=== PATIENT | male | born 1985 | race Two or more races ===

== ENCOUNTER 2017-10-09 14:55 | Emergency (ER) | payer BC ==
--- NOTE | 2017-10-09 15:37 | EDM.PDOC ---
ED HPI GENERAL MEDICAL PROBLEM - General Chief Complaint: ENT Problem Stated Complaint: LEFT EAR PAIN Time Seen by Provider: 10/09/17 15:05 Source of Information: Reports: Patient History Limitations: Reports: No Limitations - History of Present Illness INITIAL COMMENTS - FREE TEXT/NARRATIVE: History of present illness: [31-year-old male comes in with complaints of frostbite to left ear. Patient indicates that he had mistakenly gone outside thinking he would be there briefly and in fact was out there for a protracted period of time and sustained wind and cold to the left ear with subsequent blistering of skin. Comes in seeking antibiotics.] Review of systems: As per history of present illness and below otherwise all systems reviewed and negative. Past medical history: As per history of present illness and as reviewed below otherwise noncontributory. Surgical history: As per history of present illness and as reviewed below otherwise noncontributory. Social history: No reported history of drug or alcohol abuse. Family history: As per history of present illness and as reviewed below otherwise noncontributory. Physical exam: HEENT: Atraumatic, normocephalic, pupils reactive, negative for conjunctival pallor or scleral icterus, mucous membranes moist, throat clear, neck supple, nontender, trachea midline. Lungs: Clear to auscultation, breath sounds equal bilaterally, chest nontender. Heart: S1S2, regular, negative for clicks, rubs, or JVD. Abdomen: Soft, nondistended, nontender. Negative for masses or hepatosplenomegaly. Negative for costovertebral tenderness. Pelvis: Stable nontender. Genitourinary: Deferred. Rectal: Deferred. Extremities: Atraumatic, negative for cords or calf pain. Neurovascular unremarkable. Neuro: Awake, alert, oriented. Cranial nerves II through XII unremarkable. Cerebellum unremarkable. Motor and sensory unremarkable throughout. Exam nonfocal. Skin: Posterior aspect of left ear noted to have a blister at the top of the ear towards the back side site opening with scabbing already transferring Diagnostics: [] Therapeutics: [] Impression: [#1 frostbite to ear] Plan: [Antibiotics, Silvadene] Definitive disposition and diagnosis as appropriate pending reevaluation and review of above. - Related Data Allergies Allergy/AdvReac Type Severity Reaction Status Date / Time No Known Allergies Allergy Verified 10/09/17 15:18 Home Meds: Home Meds Cephalexin [Keflex] 500 mg PO QID #40 capsule 10/09/17 [Rx] Silver Sulfadiazine [Silvadene 1% Cream 50 GM] 50 gm TOP BID #1 tube 10/09/17 [ Rx] ED ROS GENERAL - Review of Systems Review Of Systems: See Below (See history of present illness) ED EXAM, GENERAL - Physical Exam Exam: See Below (History of present illness) Course - Vital Signs Last Recorded V/S: Last Vital Signs Temp 36.7 C 10/09/17 15:18 Pulse 94 10/09/17 15:18 Resp 18 10/09/17 15:18 BP 148/85 H 10/09/17 15:18 Pulse Ox 95 10/09/17 15:18 Departure - Departure Time of Disposition: 15:35 Disposition: Home, Self-Care 01 Condition: Good Clinical Impression: Frostbite of ear - Discharge Information Prescriptions: Cephalexin [Keflex] 500 mg PO QID #40 capsule Silver Sulfadiazine [Silvadene 1% Cream 50 GM] 50 gm TOP BID #1 tube Referrals: PCP,None [Primary Care Provider] - Additional Instructions: The following information is given to patients seen in the emergency department who are being discharged to home. This information is to outline your options for follow-up care. We provide all patients seen in our emergency department with a follow-up referral. The need for follow-up, as well as the timing and circumstances, are variable depending upon the specifics of your emergency department visit. If you don't have a primary care physician on staff, we will provide you with a referral. We always advise you to contact your personal physician following an emergency department visit to inform them of the circumstance of the visit and for follow-up with them and/or the need for any referrals to a consulting specialist. The emergency department will also refer you to a specialist when appropriate. This referral assures that you have the opportunity for follow-up care with a specialist. All of these measure are taken in an effort to provide you with optimal care, which includes your follow-up. Under all circumstances we always encourage you to contact your private physician who remains a resource for coordinating your care. When calling for follow-up care, please make the office aware that this follow-up is from your recent emergency room visit. If for any reason you are refused follow-up, please contact the [facility] Emergency Department at and asked to speak to the emergency department charge nurse. Chronic medication as directed Apply thin coating of cream to affected area on your ear twice a day gently cleaning it prior to applying new coating Follow-up with Primary care in 3-5 days Return to ED as needed as discussed
== END 2017-10-09 15:57 | disposition home or self-care (01) ==
LOC: MW.ED 14:55
DX: T33.012A Superficial frostbite of left ear, initial encounter (principal); X31.XXXA Exposure to excessive natural cold, initial encounter
CPT/HCPCS: 99283

== ENCOUNTER 2018-05-01 16:12 | Emergency (ER) | payer BC, OTHER ==
--- NOTE | 2018-05-01 16:36 | EDM.PDOC ---
ED HPI GENERAL MEDICAL PROBLEM - General Chief Complaint: Lower Extremity Injury/Pain Stated Complaint: left knee pain Time Seen by Provider: 05/01/18 16:15 Source of Information: Reports: Patient History Limitations: Reports: No Limitations - History of Present Illness INITIAL COMMENTS - FREE TEXT/NARRATIVE: HISTORY AND PHYSICAL: History of present illness: Patient is a 32-year-old male who presents to the emergency room with complaints of left anterior knee pain. He states that he started having discomfort approximately 2 days ago. He denies any injury, trauma or falls. No previous surgeries or knee pain/injuries. Skin is intact with out any erythema, rashes or open skin. He does have some soft tissue swelling noted at the patella , which she states is "normal". Review of systems: As per history of present illness and below otherwise all systems reviewed and negative. Past medical history: As per history of present illness and as reviewed below otherwise noncontributory. Surgical history: As per history of present illness and as reviewed below otherwise noncontributory. Social history: No reported history of drug or alcohol abuse. Family history: As per history of present illness and as reviewed below otherwise noncontributory. Physical exam: General: Well-developed and well-nourished 32-year-old male. Alert and oriented. Nontoxic appearing and in no acute distress. HEENT: Atraumatic, normocephalic, pupils equal and reactive bilaterally, negative for conjunctival pallor or scleral icterus, mucous membranes moist, throat clear, neck supple, nontender, trachea midline. No drooling or trismus noted. No meningeal signs Lungs: Clear to auscultation, breath sounds equal bilaterally, chest nontender. Heart: S1S2, regular rate and rhythm without overt murmur Abdomen: Soft, nondistended, nontender. Negative for masses or hepatosplenomegaly. Negative for costovertebral tenderness. Pelvis: Stable nontender. Genitourinary: Deferred. Rectal: Deferred. Skin: Intact, warm, dry. No lesions or rashes noted. Extremities: Atraumatic, moves all extremities per self without difficulty or deficits. Strong pedal pulses bilaterally. No knee instability. No pain with palpation to the popliteal area. Mild discomfort when palpating over the patella with some mild soft tissue swelling. He is negative for cords or calf pain. Neurovascular unremarkable. Neuro: Awake, alert, oriented. Cranial nerves II through XII unremarkable. Cerebellum unremarkable. Motor and sensory unremarkable throughout. Exam nonfocal. Notes: X-ray shows a fragmented appearance of the tibial tubercle which can represent old or new avulsion fracture. This is not displaced. Patient does have some tenderness but states that the soft tissue swelling is "normal" for him. A knee sleeve and crutches have been provided for him. Encouraged him to follow-up with the orthopedic provider for further evaluation and management. Tramadol #15 , no refill. He is agreeable to plan of care. Denies any further questions or concerns at this time. Diagnostics: X-ray Therapeutics: Knee sleeve, crutches Impression: Knee pain Plan: 1. Rest, ice, elevate the affected extremity. Use the knee sleeve and crutches as directed. 2. Tylenol and/or ibuprofen as needed for pain management. 3. Follow-up with the orthopedic provider next week. Return to the ED as needed and as discussed. Definitive disposition and diagnosis as appropriate pending reevaluation and review of above. Duration: Day(s): Location: Reports: Lower Extremity, Left Left Knee Pain Score (Numeric/FACES): 8 - Related Data Allergies Allergy/AdvReac Type Severity Reaction Status Date / Time No Known Allergies Allergy Verified 05/01/18 16:20 Home Meds: Home Meds traMADol [Ultram] 50 mg PO Q4H PRN #15 tab 05/01/18 [Rx] Past Medical History - Past Health History Medical/Surgical History: Denies Medical/Surgical History - Infectious Disease History Infectious Disease History: Reports: None Social & Family History - Family History Family Medical History: Noncontributory - Tobacco Use Smoking Status *Q: Never Smoker - Caffeine Use Caffeine Use: Reports: Coffee, Soda - Recreational Drug Use Recreational Drug Use: No Review of Systems - Review of Systems Review Of Systems: ROS reveals no pertinent complaints other than HPI. ED EXAM, GENERAL - Physical Exam Exam: See Below (See dictation) Course - Vital Signs Last Recorded V/S: Last Vital Signs Temp 97.9 F 05/01/18 16:20 Pulse 78 05/01/18 16:20 Resp 16 05/01/18 16:20 BP 168/92 H 05/01/18 16:20 Pulse Ox 99 05/01/18 16:20 - Orders/Labs/Meds Orders: Active Orders 24 hr Category Date Time Status Knee 3V Lt [CR] Stat Exams 05/01/18 16:28 Taken DME for Discharge [COMM] Stat Oth 05/01/18 17:09 Ordered Departure - Departure Time of Disposition: 17:21 Disposition: Home, Self-Care 01 Clinical Impression: Knee pain Qualifiers: Chronicity: acute Laterality: left Qualified Code(s): M25.562 - Pain in left knee - Discharge Information Prescriptions: traMADol [Ultram] 50 mg PO Q4H PRN #15 tab PRN Reason: Pain Instructions: Knee Pain, Adult Referrals: PCP,None [Primary Care Provider] - Forms: ED Department Discharge Additional Instructions: The following information is given to patients seen in the emergency department who are being discharged to home. This information is to outline your options for follow-up care. We provide all patients seen in our emergency department with a follow-up referral. The need for follow-up, as well as the timing and circumstances, are variable depending upon the specifics of your emergency department visit. If you don't have a primary care physician on staff, we will provide you with a referral. We always advise you to contact your personal physician following an emergency department visit to inform them of the circumstance of the visit and for follow-up with them and/or the need for any referrals to a consulting specialist. The emergency department will also refer you to a specialist when appropriate. This referral assures that you have the opportunity for follow-up care with a specialist. All of these measure are taken in an effort to provide you with optimal care, which includes your follow-up. Under all circumstances we always encourage you to contact your private physician who remains a resource for coordinating your care. When calling for follow-up care, please make the office aware that this follow-up is from your recent emergency room visit. If for any reason you are refused follow-up, please contact the [facility] Emergency Department at and asked to speak to the emergency department charge nurse. [facility] [address] [place] [id number] [facility] [address], [address] [place] [address] 1. Rest, ice, elevate the affected extremity. Use the knee sleeve and crutches as directed. 2. Tylenol and/or ibuprofen as needed for pain management. Tramadol for moderate /severe pain. May cause drowsiness, so do not take while driving or needing to be functioning outside the house. 3. Follow-up with the orthopedic provider next week. Return to the ED as needed and as discussed. - My Orders Last 24 Hours: My Active Orders 05/01/18 16:28 Knee 3V Lt [CR] Stat 05/01/18 17:09 DME for Discharge [COMM] Stat - Assessment/Plan Last 24 Hours: My Active Orders 05/01/18 16:28 Knee 3V Lt [CR] Stat 05/01/18 17:09 DME for Discharge [COMM] Stat
--- NOTE | 2018-05-03 11:53 | CR ---
EXAM DATE: 05/01/18 PATIENT'S AGE: 32 Patient: DEVANTE MCCAIN Facility: [place], [place] Site . Site : 1985 Study: XRay Knee Left [id number]/21/2018 4:51:04 PM Ordering Physician: Doctor Ramirez Final Report: HISTORY: Left knee pain since yesterday. No known injury. FINDINGS: Three views of the left knee are provided. There is hypertrophic change and bony fragmentation seen in the region of the tibial tubercle. This can represent developmental variation. If there is point tenderness in this region there could be a avulsion fracture present without significant displacement. Otherwise, there is no evidence for fracture, dislocation or effusion. No loose body is noted. IMPRESSION: Hypertrophic, fragmented appearance to the tibial tubercle which can represent developmental variation or old injury. If there is point tenderness in this region, there could be a new avulsion fracture which is not displaced. Otherwise no fracture elsewhere. Dictated by Travis Wright MD @ May 01 2018 5:10PM (Electronic Signature) Report Signed by Proxy. CONNOR
== END 2018-05-01 17:36 | disposition home or self-care (01) ==
LOC: MW.ED 16:12
DX: M25.562 Pain in left knee (principal)
CPT/HCPCS: 73562-26-LT; 73562-LT; 99283

== ENCOUNTER 2018-12-22 12:43 | Emergency (ER) | payer BC, OTHER ==
--- NOTE | 2018-12-22 13:53 | EDM.PDOC ---
ED HPI GENERAL MEDICAL PROBLEM - General Chief Complaint: Back Pain or Injury Stated Complaint: BANK PAIN Time Seen by Provider: 12/22/18 12:47 Source of Information: Reports: Patient History Limitations: Reports: No Limitations - History of Present Illness INITIAL COMMENTS - FREE TEXT/NARRATIVE: History of present illness: []Patient has had 2 weeks back pain in 1 week of pain radiating down his left buttock. As morning he thinks it's starting to go down the lateral part of his leg. He denies any incontinence or any severe trauma. He lifts heavy objects at work and states that 2 weeks ago he woke up one morning a thick injury. He is ambulatory without plate. Review of systems: As per history of present illness and below otherwise all systems reviewed and negative. Past medical history: As per history of present illness and as reviewed below otherwise noncontributory. Surgical history: As per history of present illness and as reviewed below otherwise noncontributory. Social history: No reported history of drug or alcohol abuse. Family history: As per history of present illness and as reviewed below otherwise noncontributory. Physical exam: General: Well developed, well nourished in NAD HEENT: Atraumatic, normocephalic, pupils reactive, negative for conjunctival pallor or scleral icterus, mucous membranes moist, throat clear, neck supple, nontender, trachea midline. Lungs: Clear to auscultation, breath sounds equal bilaterally, chest nontender. Heart: S1S2, regular, negative for clicks, rubs, or JVD. Abdomen: NABS, Soft, nondistended, nontender. Negative for masses or hepatosplenomegaly. Negative for costovertebral tenderness. Pelvis: Stable nontender. Genitourinary: Deferred. Rectal: Deferred. Extremities: Atraumatic, negative for cords or calf pain. Neurovascular unremarkable. Neuro: Awake, alert, oriented. Cranial nerves II through XII unremarkable. Cerebellum unremarkable. Motor and sensory unremarkable throughout. Exam nonfocal. Skin:warm and dry Diagnostics: None Therapeutics: None ED Course: Stable Impression: Low back pain with left sided sciatica Prescriptions: Medrol Dosepak, diclofenac, Flexeril Plan: Follow-up with primary care for further treatment. Definitive disposition and diagnosis as appropriate pending reevaluation and review of above. Lower Back Pain Score (Numeric/FACES): 9 - Related Data Allergies Allergy/AdvReac Type Severity Reaction Status Date / Time ibuprofen Allergy Respiratory Verified 12/22/18 13:18 Distress Home Meds: Home Meds Cyclobenzaprine [Flexeril] 10 mg PO BID PRN #12 tab 12/22/18 [Rx] Diclofenac Sodium [Voltaren] 75 mg PO BIDMEALS PRN #20 tab.cr 12/22/18 [Rx] amLODIPine [Norvasc] 2.5 mg PO DAILY 12/22/18 [History] methylPREDNISolone [Medrol] 4 mg PO ASDIRECTED #1 dosepk 12/22/18 [Rx] Past Medical History - Past Health History Medical/Surgical History: Denies Medical/Surgical History - Infectious Disease History Infectious Disease History: Reports: None Social & Family History - Family History Family Medical History: Noncontributory - Tobacco Use Smoking Status *Q: Never Smoker Second Hand Smoke Exposure: No - Caffeine Use Caffeine Use: Reports: Coffee - Recreational Drug Use Recreational Drug Use: No ED ROS GENERAL - Review of Systems Review Of Systems: ROS reveals no pertinent complaints other than HPI. ED EXAM,LOWER BACK PAIN/INJURY - Physical Exam Exam: See Below (See history of present illness) Course - Vital Signs Last Recorded V/S: Last Vital Signs Temp 97.3 F 12/22/18 13:20 Pulse 72 12/22/18 13:20 Resp 16 12/22/18 13:20 BP 147/81 H 12/22/18 13:20 Pulse Ox 97 12/22/18 13:20 Departure - Departure Time of Disposition: 13:53 Disposition: Home, Self-Care 01 Condition: Good Clinical Impression: Back pain with left-sided sciatica - Discharge Information *PRESCRIPTION DRUG MONITORING PROGRAM REVIEWED*: Not Applicable *COPY OF PRESCRIPTION DRUG MONITORING REPORT IN PATIENT LEANDER: Not Applicable Prescriptions: Cyclobenzaprine [Flexeril] 10 mg PO BID PRN #12 tab PRN Reason: Pain Diclofenac Sodium [Voltaren] 75 mg PO BIDMEALS PRN #20 tab.cr PRN Reason: Pain methylPREDNISolone [Medrol] 4 mg PO ASDIRECTED #1 dosepk Referrals: PCP,Unknown [Primary Care Provider] - Additional Instructions: The following information is given to patients seen in the emergency department who are being discharged to home. This information is to outline your options for follow-up care. We provide all patients seen in our emergency department with a follow-up referral. The need for follow-up, as well as the timing and circumstances, are variable depending upon the specifics of your emergency department visit. If you don't have a primary care physician on staff, we will provide you with a referral. We always advise you to contact your personal physician following an emergency department visit to inform them of the circumstance of the visit and for follow-up with them and/or the need for any referrals to a consulting specialist. The emergency department will also refer you to a specialist when appropriate. This referral assures that you have the opportunity for follow-up care with a specialist. All of these measure are taken in an effort to provide you with optimal care, which includes your follow-up. Under all circumstances we always encourage you to contact your private physician who remains a resource for coordinating your care. When calling for follow-up care, please make the office aware that this follow-up is from your recent emergency room visit. If for any reason you are refused follow-up, please contact the [facility] Emergency Department at and asked to speak to the emergency department charge nurse. Take meds as directed, follow up with your primary care physician, return to ER if symptoms worsen or change. [facility] [address] [place] [id number]
== END 2018-12-22 14:09 | disposition home or self-care (01) ==
LOC: MW.ED 12:43
DX: M54.42 Lumbago with sciatica, left side (principal); Z88.6 Allergy status to analgesic agent; Z79.899 Other long term (current) drug therapy
CPT/HCPCS: 99283

== ENCOUNTER 2019-10-18 04:54 | Emergency (ER) | payer OTHER, BC ==
--- NOTE | 2019-10-18 05:13 | EDM.PDOC ---
ED [facility] GENERAL MEDICAL PROBLEM - General Chief Complaint: General Stated Complaint: BACK PAIN Time Seen by Provider: 10/18/19 05:07 Source of Information: Reports: Patient History Limitations: Reports: No Limitations lower back Pain Score (Numeric/FACES): 7 - Related Data Allergies Allergy/AdvReac Type Severity Reaction Status Date / Time No Known Allergies Allergy Verified 10/18/19 05:04 Home Meds: Home Meds Cyclobenzaprine [Flexeril] 10 mg PO BID PRN #12 tab 12/22/18 [Rx] Diclofenac Sodium [Voltaren] 75 mg PO BIDMEALS PRN #20 tab.cr 12/22/18 [Rx] amLODIPine [Norvasc] 2.5 mg PO DAILY 12/22/18 [History] methylPREDNISolone [Medrol] 4 mg PO ASDIRECTED #1 dosepk 12/22/18 [Rx] Past Medical History - Past Health History Medical/Surgical History: Denies Medical/Surgical History - Infectious Disease History Infectious Disease History: Reports: None Social & Family History - Family History Family Medical History: Noncontributory - Caffeine Use Caffeine Use: Reports: Coffee ED ROS GENERAL - Review of Systems Review Of Systems: Comprehensive ROS is negative, except as noted in HPI. Constitutional: Reports: No Symptoms HEENT: Reports: No Symptoms Respiratory: Reports: No Symptoms Cardiovascular: Reports: No Symptoms Endocrine: Reports: No Symptoms GI/Abdominal: Reports: No Symptoms : Reports: No Symptoms Musculoskeletal: Reports: No Symptoms Skin: Reports: No Symptoms Neurological: Reports: No Symptoms Psychiatric: Reports: No Symptoms Hematologic/Lymphatic: Reports: No Symptoms Immunologic: Reports: No Symptoms ED EXAM, GENERAL - Physical Exam Exam: See Below Exam Limited By: Combative/Threatening General Appearance: Alert, WD/WN, No Apparent Distress Eye Exam: Bilateral Eye: PERRL Ears: Normal External Exam, Normal Canal, Hearing Grossly Normal, Normal TMs Nose: Normal Inspection, Normal Mucosa, No Blood Throat/Mouth: Normal Inspection, Normal Lips, Normal Teeth, Normal Gums, Normal Oropharynx, Normal Voice, No Airway Compromise Head: Atraumatic, Normocephalic Neck: Normal Inspection, Supple, Non-Tender, Full Range of Motion Respiratory/Chest: No Respiratory Distress, Lungs Clear, Normal Breath Sounds, No Accessory Muscle Use, Chest Non-Tender Cardiovascular: Normal Peripheral Pulses, Regular Rate, Rhythm, No Edema, No Gallop, No JVD, No Murmur GI/Abdominal: Normal Bowel Sounds, Soft, No Distention, No Abnormal Bruit (Male) Exam: No Hernia, Deferred Rectal (Males) Exam: Deferred Back Exam: Normal Inspection, Full Range of Motion, Paraspinal Tenderness, Vertebral Tenderness Extremities: Normal Inspection, Normal Range of Motion, Non-Tender, No Pedal Edema, Normal Capillary Refill Neurological: Alert, Oriented, CN II-XII Intact, Normal Cognition, Normal Reflexes, No Motor/Sensory Deficits Psychiatric: Normal Affect, Normal Mood Skin Exam: Warm, Dry, Intact, Normal Color, No Rash Lymphatic: No Adenopathy Course - Vital Signs Last Recorded V/S: Last Vital Signs Temp 96.7 F 10/18/19 05:04 Pulse 73 10/18/19 05:04 Resp 18 10/18/19 05:04 BP 168/88 H 10/18/19 05:04 Pulse Ox 95 10/18/19 05:04 Departure - Departure Time of Disposition: 06:23 Disposition: Home, Self-Care 01 Condition: Good Clinical Impression: Strain of thoracic back region, Contusion - Discharge Information Referrals: Chao Coffey MD [Primary Care Provider] - Sepsis Event Note - Evaluation Sepsis Screening Result: No Definite Risk - Focused Exam Vital Signs: Vital Signs Temp Pulse Resp BP Pulse Ox 10/18/19 05:04 96.7 F 73 18 168/88 H 95 Date Exam was Performed: 10/18/19 Time Exam was Performed: 05:07
--- NOTE | 2019-10-18 05:55 | CR ---
INDICATION: Lumbar pain after a fall TECHNIQUE: Lumbar spine radiograph 3 views COMPARISON: None FINDINGS: Bone: No acute fractures or aggressive bone lesions are identified. Alignment is normal. Disc: The disc spaces are unremarkable in appearance. The facet joints are unremarkable. Soft tissue: Unremarkable. No radiopaque foreign bodies are seen. IMPRESSION: 1. No acute osseous injuries or abnormalities are noted. Dictated by: Bhargav Cnaada MD @ 10/18/2019 05:53:44 (Electronically Signed)
[2019-10-18] MEDS ORDERED: Ibuprofen 600 MG Tab PO ONE (06:24)
== END 2019-10-18 06:41 | disposition home or self-care (01) ==
LOC: MW.ED 04:54
DX: S29.012A Strain of muscle and tendon of back wall of thorax, initial encounter (principal); M54.5 Low back pain; Z79.899 Other long term (current) drug therapy; V58.4XXA Person boarding or alighting a pick-up truck or van injured in noncollision transport accident, initial encounter
CPT/HCPCS: 72100; 72100-26; 99283; 99283-25

== ENCOUNTER 2024-01-30 13:15 | Emergency (ER) | payer BC | END 2024-01-30 14:26 | disposition home or self-care (01) | LOC: MW.ED 13:15 | DX: K04.7 Periapical abscess without sinus (principal); I10 Essential (primary) hypertension; E11.9 Type 2 diabetes mellitus without complications; Z75.8 Other problems related to medical facilities and other health care; Z79.84 Long term (current) use of oral hypoglycemic drugs; Z79.899 Other long term (current) drug therapy | CPT/HCPCS: 99282; 99283 ==